=== PATIENT | female | born 1995 | race African-American/Black ===

== ENCOUNTER 2020-01-31 19:18 | Observation (INO) | payer BC, OTHER ==
[2020-01-31 19:44] VITALS: BMI 41.1
[2020-01-31 21:02] LABS: BASO % 0.8 % (0-2.0); EOS % 1.9 % (0-4.5); HEMATOCRIT 35.8 % (32.4-45.2); LYMPH % 46.2 % (8-40); MCHC 30.9 g/dl (32.0-36.0); MEAN CELL VOLUME 71.2 fl (80-96); MONO % 7.8 % (3.8-10.2); NEUT % 43.3 % (42.8-82.8); PLATELET COUNT 277 K/MM3 (134-434); RBC 5.02 M/mm3 (3.60-5.2); RDW 17.4 % (11.6-15.6); WHITE BLOOD COUNT 6.9 K/mm3 (4.0-10.0)
[2020-01-31 21:17] LABS: CHLORIDE 105 mmol/L (98-107); POTASSIUM 4.3 mmol/L (3.5-5.1); SODIUM 138 mmol/L (136-145)
[2020-01-31 21:19] LABS: ALBUMIN 3.7 g/dl (3.4-5.0); CALCIUM 8.9 mg/dL (8.5-10.1); GLUCOSE,RANDOM 80 mg/dL (74-106)
[2020-01-31 21:20] LABS: ANION GAP 6 MMOL/L (8-16); CO2 27 mmol/L (21-32)
[2020-01-31 21:22] LABS: CREATININE 0.7 mg/dL (0.55-1.3); SGPT/ALT 20 U/L (13-61)
[2020-01-31 21:23] LABS: SGOT/AST 16 U/L (15-37)
[2020-01-31 21:24] LABS: BILIRUBIN,TOTAL 0.2 mg/dL (0.2-1); TOT PROT 7.7 g/dl (6.4-8.2)
[2020-01-31 21:25] LABS: ALK PHOS 60 U/L (45-117)
[2020-01-31] MEDS ORDERED: ACETAMINOPHEN 500 MG TABLET (FP) PO ONE (21:53)
[2020-01-31] MEDS ORDERED: ACETAMINOPHEN 325 MG TABLET (FP) ONE (22:03)
[2020-01-31 22:48] LABS: N-TERMINAL BNP 30.7 pg/ml (5-125)
[2020-01-31] MEDS ORDERED: FAMOTIDINE 20 MG/50 ML IVPB 20 MG/50 ML MG IVPB ONE ×2 (23:42→23:55)
[2020-01-31] MEDS ORDERED: MAG HYDROX/AL HYDROX/SIMETH -MYLANTA- ORAL SUSPENSION PO ONE (23:42)
[2020-01-31] MEDS ORDERED: MAG HYDROX/AL HYDROX/SIMETH 30 ML UNIT-DOSE CUP ONE (23:54)
[2020-02-01 01:12] LABS: PH,URINE 6.5 (5.0-8.0); URINE APPEARANCE CLEAR; URINE BILIRUBIN NEGATIVE (NEGATIVE); URINE COLOR YELLOW; URINE GLUCOSE (UA) NEGATIVE (NEGATIVE); URINE KETONE NEGATIVE (NEGATIVE); URINE LEUK ESTERASE NEGATIVE (NEGATIVE); URINE NITRITE NEGATIVE (NEGATIVE); URINE PROTEIN NEGATIVE (NEGATIVE); URINE UROBILINOGEN 0.2 mg/dL (0.2-1.0)
[2020-02-01 02:18] LABS: OPIATES, URI NEGATIVE ng/ml (CUTOFF=300); URINE AMPHETAMINES NEGATIVE ng/ml (CUTOFF=500); URINE BARBITURATES NEGATIVE ng/ml (CUTOFF=200)
[2020-02-01 02:19] LABS: PHENCYCLIDINE,URINE NEGATIVE ng/ml (CUTOFF=25)
[2020-02-01 02:23] LABS: COCAINE, UR NEGATIVE ng/ml (CUTOFF=300); METHADONE, UR NEGATIVE ng/ml (CUTOFF=300); URINE BENZODIAZEPINES NEGATIVE ng/ml (CUTOFF=200)
[2020-02-01 07:14] LABS: HEMATOCRIT 33.3 % (32.4-45.2); HEMOGLOBIN 10.4 GM/dL (10.7-15.3); MCHC 31.1 g/dl (32.0-36.0); MEAN CELL VOLUME 70.6 fl (80-96); MEAN PLT VOLUME 10.4 fl (7.5-11.1); PLATELET COUNT 269 K/MM3 (134-434); RBC 4.72 M/mm3 (3.60-5.2); RDW 17.2 % (11.6-15.6); WHITE BLOOD COUNT 6.9 K/mm3 (4.0-10.0)
[2020-02-01 07:26] LABS: CHLORIDE 107 mmol/L (98-107); POTASSIUM 4.2 mmol/L (3.5-5.1); SODIUM 139 mmol/L (136-145)
[2020-02-01 07:32] LABS: ALBUMIN 3.5 g/dl (3.4-5.0); ANION GAP 7 MMOL/L (8-16); BLOOD UREA NITROGEN 9.1 mg/dL (7-18); CO2 26 mmol/L (21-32); MAGNESIUM 2.3 mg/dL (1.8-2.4)
[2020-02-01 07:33] LABS: CALCIUM 8.7 mg/dL (8.5-10.1); GLUCOSE,RANDOM 78 mg/dL (74-106)
[2020-02-01 07:34] LABS: PHOSPHOROUS 3.9 mg/dL (2.5-4.9)
[2020-02-01 07:35] LABS: CHOLESTEROL 150 mg/dL (50-200); SGOT/AST 15 U/L (15-37); SGPT/ALT 18 U/L (13-61); TRIGLYCERIDES 61 mg/dL (0-150)
[2020-02-01 07:36] LABS: BILIRUBIN,TOTAL 0.2 mg/dL (0.2-1); CREATININE 0.7 mg/dL (0.55-1.3); LDL CHOLESTEROL (ONLY SJRH) 88 mg/dL (5-100)
[2020-02-01 07:37] LABS: ALK PHOS 58 U/L (45-117); HDL CHOLESTEROL 55 mg/dL (40-60)
[2020-02-01 12:16] LABS: HIV INTERPRETATION NEGATIVE (NEGATIVE)
[2020-02-01] MEDS ORDERED: PANTOPRAZOLE 20 MG TABLET PO ONE (14:37)
[2020-02-01] MEDS: PANTOPRAZOLE 20 MG TABLET PO SCH (14:41)
[2020-02-01] MEDS: INDOMETHACIN 25 MG CAPSULE PO SCH ×2 (15:28→21:49)
[2020-02-02] MEDS ORDERED: PT OWN MED DRAWER 7, Y5N ONE (09:37)
[2020-02-02] MEDS: PANTOPRAZOLE 20 MG TABLET PO SCH (09:42)
[2020-02-02] MEDS: INDOMETHACIN 25 MG CAPSULE PO SCH (09:43)
[2020-02-02 10:27] LABS: HEMATOCRIT 37.6 % (32.4-45.2); HEMOGLOBIN 11.6 GM/dL (10.7-15.3); MCH 22.2 pg (25.7-33.7); MCHC 30.9 g/dl (32.0-36.0); MEAN CELL VOLUME 71.6 fl (80-96); MEAN PLT VOLUME 10.2 fl (7.5-11.1); PLATELET COUNT 289 K/MM3 (134-434); RBC 5.25 M/mm3 (3.60-5.2); RDW 17.5 % (11.6-15.6); WHITE BLOOD COUNT 6.4 K/mm3 (4.0-10.0)
[2020-02-02 10:50] LABS: POTASSIUM 4.3 mmol/L (3.5-5.1)
[2020-02-02 10:56] LABS: BLOOD UREA NITROGEN 9.5 mg/dL (7-18); CALCIUM 9.5 mg/dL (8.5-10.1)
[2020-02-02 10:59] LABS: CREATININE 0.8 mg/dL (0.55-1.3)
[2020-02-02 15:28] VITALS: BP 119/64; PULSE 123; TEMP 98.2
[2020-02-04 13:10] LABS: COXSACKIE A16 IGM Negative titer (Neg:<1:10); COXSACKIE A24 IGM Negative titer (Neg:<1:10); COXSACKIE A7 IGM Negative titer (Neg:<1:10); COXSACKIE A9 IGM Negative titer (Neg:<1:10)
== END 2020-02-02 17:10 | disposition home or self-care (01) ==
LOC: JER 19:18 → JERBED 23:59 → J4W 02-01 16:56
PROVIDERS: ADMIT Hospitalist; ATTEND Internal Medicine
PROC: 3E033GC Introduction of Other Therapeutic Substance into Peripheral Vein, Percutaneous Approach (ICD-10-PCS; principal; 2020-01-31)
DX: R00.2 Palpitations (principal); J45.990 Exercise induced bronchospasm; R07.89 Other chest pain; Z29.9 Encounter for prophylactic measures, unspecified; E66.01 Morbid (severe) obesity due to excess calories; Z68.41 Body mass index [BMI] 40.0-44.9, adult; I31.3 Pericardial effusion (noninflammatory); Z88.0 Allergy status to penicillin
CPT/HCPCS: 36415; 71045-TC-FY; 71275-TC; 80048; 80053; 80061; 80307; 81003; 82550; 83036; 83721; 83735; 83880; 84100; 84443; 84484; 84703; 85025; 85027; 85651; 86140; 86618; 86658; 87086; 87389; 87529; 93005; 93010; 93306-TC; 96365; 96374; 99285-25; C9803; G0378; Q9967; U0003